=== PATIENT | female | born 1985 | race African-American/Black ===

== ENCOUNTER 2017-05-12 12:50 | Emergency (ER) | payer SELFPAY ==
--- NOTE | 2017-05-12 15:31 | EDPHYS ---
Physician Documentation [facility] Name: Nilo Reid Age: 31 yrs Sex: Female : 1985 Arrival Date: 05/12/2017 Time: 12:52 Bed Treatment Private MD: ED Physician Aadm Miller HPI: 05/12 15:29 This 31 yrs old Black Female presents to ER via Ambulatory with complaints of Abscess, kb Fever. 15:29 The patient presents with lost tooth/teeth, pain, redness, swelling. The problem is kb located in the upper left third molar (#16). Onset: The symptoms/episode began/occurred yesterday. Duration: The symptoms are continuous. Modifying factors: The symptoms are alleviated by nothing, the symptoms are aggravated by nothing. Associated signs and symptoms: Pertinent positives: fever, pain, redness in area, swelling. Severity of symptoms: At their worst the symptoms were moderate, in the emergency department the symptoms are unchanged. The patient has not experienced similar symptoms in the past. The patient has not recently seen a physician. Pt states she has had issues with this particular tooth for a while. Yesterday the tooth fell out, but she didn't notice until she was brushing her teeth last night, then had a lot of pain. States she had a fever this morning and has had continuous pain that is not relieved by OTC medication. . Historical: - Allergies: 13:42 No Known Allergies; ss - Home Meds: 13:42 None [Active]; ss - PMHx: 13:42 None; ss - PSHx: 13:42 c section; ss - Immunization history:: Adult Immunizations up to date. - Social history:: Smoking status: Patient/guardian denies using tobacco. ROS: 15:24 Neck: Negative for injury, pain, and swelling, Cardiovascular: Negative for chest pain, kb palpitations, and edema, Respiratory: Negative for shortness of breath, cough, wheezing, and pleuritic chest pain, Abdomen/GI: Negative for abdominal pain, nausea, vomiting, diarrhea, and constipation, Back: Negative for injury and pain, MS/Extremity: Negative for injury and deformity, Skin: Negative for injury, rash, and discoloration, Neuro: Negative for headache, weakness, numbness, tingling, and seizure. 15:24 Constitutional: Positive for fever, Negative for body aches, chills, fatigue, malaise, poor PO intake, weight loss. 15:24 ENT: Positive for dental pain. Exam: 15:24 Constitutional: This is a well developed, well nourished patient who is awake, alert, kb and in no acute distress. Head/Face: Normocephalic, atraumatic. Chest/axilla: Normal chest wall appearance and motion. Nontender with no deformity. No lesions are appreciated. Cardiovascular: Regular rate and rhythm with a normal S1 and S2. No gallops, murmurs, or rubs. Normal PMI, no JVD. No pulse deficits. Respiratory: Lungs have equal breath sounds bilaterally, clear to auscultation and percussion. No rales, rhonchi or wheezes noted. No increased work of breathing, no retractions or nasal flaring. Abdomen/GI: Soft, non-tender, with normal bowel sounds. No distension or tympany. No guarding or rebound. No evidence of tenderness throughout. Skin: Warm, dry with normal turgor. Normal color with no rashes, no lesions, and no evidence of cellulitis. MS/ Extremity: Pulses equal, no cyanosis. Neurovascular intact. Full, normal range of motion. Neuro: Awake and alert, GCS 15, oriented to person, place, time, and situation. Cranial nerves II-XII grossly intact. Motor strength 5/5 in all extremities. Sensory grossly intact. Cerebellar exam normal. Normal gait. 15:24 ENT: Dental exam: cellulitis, that is mild, specifically in the upper left third molar (#16), gum swelling, that is moderate, specifically in the upper left third molar (#16), pain, that is moderate, specifically in the upper left third molar (#16). Vital Signs: 13:42 BP 128 / 98; Pulse 64; Resp 14; Temp 98.8; Pulse Ox 99% on R/A; Weight 77.11 kg; Height ss 5 ft. 1 in. (154.94 cm); Pain 8/10; 13:42 Body Mass Index 32.12 (77.11 kg, 154.94 cm) ss MDM: 15:17 Patient medically screened. kb 15:24 Data reviewed: vital signs, nurses notes. Data interpreted: Pulse oximetry: on room air kb is 99 %. Interpretation: normal. Counseling: I had a detailed discussion with the patient and/or guardian regarding: the historical points, exam findings, and any diagnostic results supporting the discharge/admit diagnosis, the need for outpatient follow up, a dentist, to return to the emergency department if symptoms worsen or persist or if there are any questions or concerns that arise at home. Administered Medications: No medications were administered Disposition: 05/12/17 15:30 Discharged to Home. Impression: Periapical abscess without sinus. - Condition is Stable. - Discharge Instructions: Abscessed Tooth, [id number]. - Prescriptions for Amoxicillin 875 mg Oral Tablet - take 1 tablet by ORAL route every 12 hours for 10 days; 20 tablet. Tramadol 50 mg Oral Tablet - take 1 tablet by ORAL route every 8 hours as needed; 12 tablet. - Medication Reconciliation Form, Thank You Letter, Antibiotic Education, Prescription Opioid Use form. - Follow up: Private Physician; When: 2 - 3 days; Reason: Recheck today's complaints, Continuance of care, Re-evaluation by your physician. Follow up: Emergency Department; When: As needed; Reason: Worsening of condition. Addendum: 05/16/2017 07:16 Co-signature as Attending Physician, Adam Miller MD. g s Signatures: Olivia Rashid FNP-C FNP-Akiko Biswas RN RN ss Starr, Gregory, MD MD
--- NOTE | 2017-05-12 15:31 | ER ---
Nurse's Notes [facility] Name: Nilo Reid Age: 31 yrs Sex: Female : 1985 Arrival Date: 05/12/2017 Time: 12:52 Bed Treatment Private MD: Diagnosis: Periapical abscess without sinus Presentation: 05/12 13:41 Presenting complaint: Patient states: dental pain that began 2 days ago. "I have an ss abscess". Transition of care: patient was not received from another setting of care. Onset of symptoms was May 10, 2017. Care prior to arrival: None. 13:41 Method Of Arrival: Ambulatory ss 13:41 Acuity: ADRI 5 ss Historical: - Allergies: 13:42 No Known Allergies; ss - Home Meds: 13:42 None [Active]; ss - PMHx: 13:42 None; ss - PSHx: 13:42 c section; ss - Immunization history:: Adult Immunizations up to date. - Social history:: Smoking status: Patient/guardian denies using tobacco. Screenin:29 Abuse screen: Denies threats or abuse. Denies injuries from another. Nutritional ss screening: No deficits noted. Tuberculosis screening: Never had TB. Fall Risk None identified. Assessment: 15:29 General: Appears in no apparent distress. comfortable, Behavior is calm, cooperative, ss Denies fever, feeling ill, fatigue, chills. Pain: Complains of pain in upper left third molar (#16) Pain currently is 8 out of 10 on a pain scale. Quality of pain is described as aching, tender, throbbing, Is continuous. Neuro: Level of Consciousness is awake, alert, obeys commands, Oriented to person, place, time, situation. Cardiovascular: Capillary refill < 3 seconds is brisk in bilateral fingers. Respiratory: Airway is patent Respiratory effort is even, unlabored, Respiratory pattern is regular, symmetrical. EENT: Oral mucosa is moist. Dental caries noted in upper left third molar (#16). Derm: Skin is intact, is healthy with good turgor, Skin is dry, Skin is pink, warm \\T\\ dry. normal. Musculoskeletal: Circulation, motion, and sensation intact. Capillary refill < 3 seconds, is brisk, in bilateral fingers. Range of motion: intact in all extremities, Swelling. Vital Signs: 13:42 BP 128 / 98; Pulse 64; Resp 14; Temp 98.8; Pulse Ox 99% on R/A; Weight 77.11 kg; Height ss 5 ft. 1 in. (154.94 cm); Pain 8/10; 13:42 Body Mass Index 32.12 (77.11 kg, 154.94 cm) ss ED Course: 12:52 Patient arrived in ED. as 13:41 Triage completed. ss 13:42 Arm band placed on left wrist. ss 15:10 Olivia Rashid FNP-C is [facility]. kb 15:10 Adam Miller MD is Attending Physician. kb 15:29 Akiko Jon, RN is Primary Nurse. ss 15:29 Patient has correct armband on for positive identification. Bed in low position. Call ss light in reach. 15:29 No provider procedures requiring assistance completed. Patient did not have IV access ss during this emergency room visit. Administered Medications: No medications were administered Outcome: 15:29 Discharged to home ambulatory. ss 15:29 Condition: good 15:29 Discharge instructions given to patient, Instructed on discharge instructions, follow up and referral plans. medication usage, Demonstrated understanding of instructions, follow-up care, medications, Prescriptions given X 2. 15:30 Discharge ordered by . kb 15:32 Patient left the ED. ss Signatures: Olivia Rashid FNP-C FNP-Joyce Saxena as Akiko Jon, RN RN ss
== END 2017-05-12 15:32 | disposition home or self-care (01) ==
LOC: ER 12:50
DX: K04.7 Periapical abscess without sinus (principal)
CPT/HCPCS: 99282

== ENCOUNTER 2017-06-09 10:19 | Emergency (ER) | payer SELFPAY ==
--- NOTE | 2017-06-09 10:40 | EDPHYS ---
Physician Documentation [facility] Name: Nilo Reid Age: 31 yrs Sex: Female : 1985 Arrival Date: 06/09/2017 Time: 10:20 Bed 11 Private MD: ED Physician Griffin Beasley HPI: 06/09 10:39 This 31 yrs old Black Female presents to ER via Ambulatory with complaints of Ear Pain. pm1 10:39 The patient presents with pain. The complaints affect the right ear. Onset: The pm1 symptoms/episode began/occurred this morning. Modifying factors: The symptoms are alleviated by nothing, the symptoms are aggravated by nothing. Severity of symptoms: in the emergency department the symptoms are worse. The patient has not experienced similar symptoms in the past. The patient has not recently seen a physician. Patient reports right upper molar tooth pain radiating to right ear. 10:39 Associated signs and symptoms: Pertinent negatives: cough, fever, sore throat. 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 - Social history:: Smoking status: Patient/guardian denies using tobacco. ROS: 10:39 Constitutional: Negative for fever, chills, and weight loss, Eyes: Negative for injury, pm1 pain, redness, and discharge. 10:39 Neck: Negative for injury, pain, and swelling, Cardiovascular: Negative for chest pain, palpitations, and edema, Respiratory: Negative for shortness of breath, cough, wheezing, and pleuritic chest pain, Abdomen/GI: Negative for abdominal pain, nausea, vomiting, diarrhea, and constipation, Back: Negative for injury and pain, MS/Extremity: Negative for injury and deformity, Skin: Negative for injury, rash, and discoloration, Neuro: Negative for headache, weakness, numbness, tingling, and seizure. 10:39 ENT: Positive for dental pain, ear pain, Negative for drainage from ear(s). Exam: 10:39 Constitutional: This is a well developed, well nourished patient who is awake, alert, pm1 and in no acute distress. Head/Face: Normocephalic, atraumatic. Eyes: Pupils equal round and reactive to light, extra-ocular motions intact. Lids and lashes normal. Conjunctiva and sclera are non-icteric and not injected. Cornea within normal limits. Periorbital areas with no swelling, redness, or edema. 10:39 Neck: Trachea midline, no thyromegaly or masses palpated, and no cervical lymphadenopathy. Supple, full range of motion without nuchal rigidity, or vertebral point tenderness. No Meningismus. Chest/axilla: Normal chest wall appearance and motion. Nontender with no deformity. No lesions are appreciated. Cardiovascular: Regular rate and rhythm with a normal S1 and S2. No gallops, murmurs, or rubs. Normal PMI, no JVD. No pulse deficits. Respiratory: Lungs have equal breath sounds bilaterally, clear to auscultation and percussion. No rales, rhonchi or wheezes noted. No increased work of breathing, no retractions or nasal flaring. Back: No spinal tenderness. No costovertebral tenderness. Full range of motion. Skin: Warm, dry with normal turgor. Normal color with no rashes, no lesions, and no evidence of cellulitis. MS/ Extremity: Pulses equal, no cyanosis. Neurovascular intact. Full, normal range of motion. 10:39 ENT: External ear(s): are unremarkable, Ear canal(s): are normal, TM's: are normal, Nose: is normal, Mouth: is normal, no acute changes, Dental exam: dental caries, specifically in the upper right third molar (#1) and upper right second molar (#2). Vital Signs: 10:22 BP 149 / 110; Pulse 72; Resp 19; Temp 97.5; Pulse Ox 100% on R/A; Weight 72.57 kg; la1 Height 5 ft. 1 in. (154.94 cm); 10:22 Body Mass Index 30.23 (72.57 kg, 154.94 cm) la1 MDM: 10:25 Patient medically screened. pm1 10:39 Data reviewed: vital signs. Data interpreted: Pulse oximetry: on room air is 100 %. pm1 Interpretation: normal. Counseling: I had a detailed discussion with the patient and/or guardian regarding: the historical points, exam findings, and any diagnostic results supporting the discharge/admit diagnosis, the need for outpatient follow up, for definitive care, a dentist, to return to the emergency department if symptoms worsen or persist or if there are any questions or concerns that arise at home. Administered Medications: No medications were administered Disposition: 06/10 09:17 Co-signature as Attending Physician, Griffin Beasley MD I agree with the assessment and [facility] plan of care. Disposition: 06/09/17 10:40 Discharged to Home. Impression: Dental caries. - Condition is Stable. - Discharge Instructions: Dental Pain. - Prescriptions for Augmentin 875- 125 mg Oral Tablet - take 1 tablet by ORAL route every 12 hours for 10 days; 20 tablet. Tramadol 50 mg Oral Tablet - take 1 tablet by ORAL route every 8 hours as needed; 12 tablet. - Medication Reconciliation Form, Thank You Letter, Antibiotic Education, Prescription Opioid Use form. - Follow up: Emergency Department; When: As needed; Reason: Worsening of condition. Follow up: Private Physician; When: 2 - 3 days; Reason: Recheck today's complaints, Continuance of care, Re-evaluation by your physician. - Problem is new. - Symptoms have improved. Signatures: Griffin Beasley MD MD cha Attema, Lee RN RN la1 Navarro Wilson, LAUREN PRESTO LOG OPERATOR pm1
--- NOTE | 2017-06-09 10:40 | ER ---
Nurse's Notes [facility] Name: Nilo Reid Age: 31 yrs Sex: Female : 1985 Arrival Date: 06/09/2017 Time: 10:20 Bed 11 Private MD: Diagnosis: Dental caries Presentation: 06/09 10:22 Presenting complaint: Patient states: I have been having right ear pain since saturday. la1 Transition of care: patient was not received from another setting of care. Onset of symptoms was June 09, 2017. Initial Sepsis Screen: Does the patient meet any 2 criteria? No. Patient's initial sepsis screen is negative. Does the patient have a suspected source of infection? No. Patient's initial sepsis screen is negative. Care prior to arrival: None. 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 - Social history:: Smoking status: Patient/guardian denies using tobacco. Screenin:26 Abuse screen: Denies threats or abuse. Nutritional screening: No deficits noted. la1 Tuberculosis screening: No symptoms or risk factors identified. Fall Risk None identified. Assessment: 10:26 General: Appears in no apparent distress. Behavior is calm, cooperative. Pain: la1 Complains of pain in right ear. Neuro: Level of Consciousness is awake, alert, obeys commands, Oriented to person, place, time, situation. Cardiovascular: Capillary refill < 3 seconds Patient's skin is warm and dry. Respiratory: Airway is patent Respiratory effort is even, unlabored, Respiratory pattern is regular, symmetrical. GI: No signs and/or symptoms were reported involving the gastrointestinal system. : No signs and/or symptoms were reported regarding the genitourinary system. EENT: Reports pain in right ear. Vital Signs: 10: BP 149 / 110; Pulse 72; Resp 19; Temp 97.5; Pulse Ox 100% on R/A; Weight 72.57 kg; la1 Height 5 ft. 1 in. (154.94 cm); 10: Body Mass Index 30.23 (72.57 kg, 154.94 cm) la1 ED Course: 10:20 Patient arrived in ED. as 10:22 Triage completed. la1 10: Arm band placed on left wrist. la1 10: Navarro Wilson NP is PHCP. pm1 10: Griffin Beasley MD is Attending Physician. pm1 10: Call light in reach. la1 10: No provider procedures requiring assistance completed. Patient did not have IV access la1 during this emergency room visit. Administered Medications: No medications were administered Outcome: 10:40 Discharge ordered by . pm1 10:43 Discharged to home ambulatory. la1 10:43 Condition: stable 10:43 Discharge instructions given to patient, Instructed on discharge instructions, follow up and referral plans. medication usage, Demonstrated understanding of instructions, follow-up care, medications, Prescriptions given X 2. 10:43 Patient left the ED. la1 Signatures: Joyce Teague Lee RN RN la1 Navarro Wilson NP TOLL SETTLEMENT CLERK pm1
== END 2017-06-09 10:43 | disposition home or self-care (01) ==
LOC: ER 10:19
DX: K02.9 Dental caries, unspecified (principal); I10 Essential (primary) hypertension
CPT/HCPCS: 99282

== ENCOUNTER 2017-08-01 10:54 | Emergency (ER) | payer SELFPAY ==
--- NOTE | 2017-08-01 11:20 | ER ---
Nurse's Notes [facility] Name: Nilo Pineda Age: 31 yrs Sex: Female : 1985 Arrival Date: 08/01/2017 Time: 10:58 Bed 14 Private MD: None, None Diagnosis: Periapical abscess without sinus Presentation: 08/01 11:05 Presenting complaint: Patient states: Abscess to upper left mouth that started Saturday. aj Transition of care: patient was not received from another setting of care. Onset of symptoms was July 30, 2017. Risk Assessment: Do you want to hurt yourself or someone else? Patient reports no desire to harm self or others. Care prior to arrival: None. 11:05 Method Of Arrival: Ambulatory aj 11:05 Acuity: ADIR 5 aj 11:10 Initial Sepsis Screen: Does the patient meet any 2 criteria? No. Patient's initial aa5 sepsis screen is negative. Does the patient have a suspected source of infection? No. Patient's initial sepsis screen is negative. Triage Assessment: 11:06 General: Appears in no apparent distress. comfortable, Behavior is calm, cooperative, aj appropriate for age. Pain: Complains of pain in left buccal mucosa. Neuro: Level of Consciousness is awake, alert, obeys commands, Oriented to person, place, time, situation, Appropriate for age. Respiratory: Airway is patent Respiratory effort is even, unlabored, Respiratory pattern is regular, symmetrical. Derm: Skin is intact, is healthy with good turgor, Skin is pink, warm \T\ dry. normal. 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 - Social history:: Smoking status: Patient/guardian denies using tobacco. - Ebola Screening: : Patient negative for fever greater than or equal to 101.5 degrees Fahrenheit, and additional compatible Ebola Virus Disease symptoms Patient denies exposure to infectious person Patient denies travel to an Ebola-affected area in the 21 days before illness onset No symptoms or risks identified at this time. Screenin:10 Abuse screen: Denies threats or abuse. Nutritional screening: No deficits noted. aa5 Tuberculosis screening: No symptoms or risk factors identified. Fall Risk None identified. Assessment: 11:10 General: Appears uncomfortable, Behavior is calm, cooperative. Pain: Complains of pain aa5 in left upper buccal mucosa Pain radiates to left cheek Pain currently is 10 out of 10 on a pain scale. Quality of pain is described as tender, throbbing, Pain began 2-3 days ago. Is continuous. Neuro: Level of Consciousness is awake, alert, obeys commands, Oriented to person, place, time, situation. Cardiovascular: Heart tones S1 S2 present Rhythm is regular. Respiratory: Airway is patent Respiratory effort is even, unlabored, Respiratory pattern is regular, symmetrical. GI: No signs and/or symptoms were reported involving the gastrointestinal system. : No signs and/or symptoms were reported regarding the genitourinary system. EENT: Swollen area noted to back of left upper gum. Derm: Skin is dry, Skin is normal, Skin temperature is warm. Musculoskeletal: Range of motion: intact in all extremities. Vital Signs: 11:06 BP 158 / 112; Pulse 98; Resp 18; Temp 98.5; Pulse Ox 100% on R/A; Weight 66.22 kg; aj Height 5 ft. 1 in. (154.94 cm); 11:25 BP 144 / 85; Pulse 98; Resp 16 S; Pulse Ox 99% on R/A; Pain 10/10; aa5 11:06 Body Mass Index 27.59 (66.22 kg, 154.94 cm) aj ED Course: 10:58 Patient arrived in ED. mr 10:58 None, None is Private Physician. mr 11:06 Triage completed. aj 11:06 Arm band placed on left wrist. Patient placed in an exam room. aj 11:08 Anna Siddiqi FNP-C is PHCP. snw 11:08 Angelo Wisdom MD is Attending Physician. snw 11:10 Patient has correct armband on for positive identification. aa5 11:14 Karin Samuel, RN is Primary Nurse. aa5 11:30 No provider procedures requiring assistance completed. Patient did not have IV access aa5 during this emergency room visit. Administered Medications: 11:30 Drug: Clindamycin 300 mg Route: PO; aa5 11:30 Follow up: Response: Medication administered at discharge. aa5 11:30 Follow up: Response: No adverse reaction aa5 11:30 Drug: traMADol 50 mg Route: PO; aa5 11:30 Follow up: Response: Medication administered at discharge. aa5 11:30 Follow up: Response: No adverse reaction aa5 Outcome: 11:19 Discharge ordered by . isidro 11:30 Discharged to home ambulatory, with family. aa5 11:30 Condition: stable 11:30 Discharge instructions given to patient, Instructed on discharge instructions, follow up and referral plans. medication usage, Demonstrated understanding of instructions, follow-up care, medications, Prescriptions given X 3. 11:31 Patient left the ED. aa5 Signatures: Sabina Saul RN RN aj Therrien, Shelly, APPLICATION DEVELOPMENT LIAISON-C APPLICATION DEVELOPMENT LIAISON-Mercy Rodriguez Audri, RN RN aa5 Corrections: (The following items were deleted from the chart) 11:36 11:25 BP 144 / 85; Pulse 98bpm; Resp 16bpm; Spontaneous; Pulse Ox 99% RA; Pain /10; [id number]
--- NOTE | 2017-08-01 11:20 | EDPHYS ---
Physician Documentation [facility] Name: Nilo Pineda Age: 31 yrs Sex: Female : 1985 Arrival Date: 08/01/2017 Time: 10:58 Bed 14 Private MD: None, None ED Physician Angelo Wisdom HPI: 08/01 11:50 This 31 yrs old Black Female presents to ER via Ambulatory with complaints of Abscess. snw 11:50 the patient presents with a swollen area of the upper left third molar (#16). snw Description: swollen. Onset: The symptoms/episode began/occurred gradually, at an unknown time. Possible cause(s): toothache. Associated signs and symptoms: Pertinent positives: swelling. Severity of symptoms: At their worst the symptoms were moderate, severe. The patient has not experienced similar symptoms in the past. The patient has not recently seen a physician, has an appt with dentist in two weeks. Pain not manageable for that long. 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 - Social history:: Smoking status: Patient/guardian denies using tobacco. - Ebola Screening: : Patient negative for fever greater than or equal to 101.5 degrees Fahrenheit, and additional compatible Ebola Virus Disease symptoms Patient denies exposure to infectious person Patient denies travel to an Ebola-affected area in the 21 days before illness onset No symptoms or risks identified at this time. ROS: 11:50 Constitutional: Negative for fever, chills, and weight loss, Eyes: Negative for injury, snw pain, redness, and discharge, Neck: Negative for injury, pain, and swelling, Cardiovascular: Negative for chest pain, palpitations, and edema, Respiratory: Negative for shortness of breath, cough, wheezing, and pleuritic chest pain, Abdomen/GI: Negative for abdominal pain, nausea, vomiting, diarrhea, and constipation, Back: Negative for injury and pain, : Negative for injury, bleeding, discharge, and swelling, MS/Extremity: Negative for injury and deformity, Skin: Negative for injury, rash, and discoloration, Neuro: Negative for headache, weakness, numbness, tingling, and seizure. 11:50 ENT: Positive for dental pain. Exam: 11:48 Constitutional: This is a well developed, well nourished patient who is awake, alert, snw and in no acute distress. Head/Face: Normocephalic, atraumatic. Eyes: Pupils equal round and reactive to light, extra-ocular motions intact. Lids and lashes normal. Conjunctiva and sclera are non-icteric and not injected. Cornea within normal limits. Periorbital areas with no swelling, redness, or edema. Neck: Trachea midline, no thyromegaly or masses palpated, and no cervical lymphadenopathy. Supple, full range of motion without nuchal rigidity, or vertebral point tenderness. No Meningismus. Chest/axilla: Normal chest wall appearance and motion. Nontender with no deformity. No lesions are appreciated. Cardiovascular: Regular rate and rhythm with a normal S1 and S2. No gallops, murmurs, or rubs. Normal PMI, no JVD. No pulse deficits. Respiratory: Lungs have equal breath sounds bilaterally, clear to auscultation and percussion. No rales, rhonchi or wheezes noted. No increased work of breathing, no retractions or nasal flaring. Abdomen/GI: Soft, non-tender, with normal bowel sounds. No distension or tympany. No guarding or rebound. No evidence of tenderness throughout. Back: No spinal tenderness. No costovertebral tenderness. Full range of motion. Skin: Warm, dry with normal turgor. Normal color with no rashes, no lesions, and no evidence of cellulitis. MS/ Extremity: Pulses equal, no cyanosis. Neurovascular intact. Full, normal range of motion. Neuro: Awake and alert, GCS 15, oriented to person, place, time, and situation. Cranial nerves II-XII grossly intact. Motor strength 5/5 in all extremities. Sensory grossly intact. Cerebellar exam normal. Normal gait. Psych: Awake, alert, with orientation to person, place and time. Behavior, mood, and affect are within normal limits. 11:48 ENT: External ear(s): are unremarkable, Ear canal(s): are normal, TM's: are normal, Nose: is normal, Mouth: is normal, Posterior pharynx: is normal, Dental exam: dental caries, that is moderate, gum swelling, that is mild, specifically in the upper left third molar (#16), pain, that is moderate, specifically in the upper left third molar (#16). Vital Signs: 11:06 BP 158 / 112; Pulse 98; Resp 18; Temp 98.5; Pulse Ox 100% on R/A; Weight 66.22 kg; aj Height 5 ft. 1 in. (154.94 cm); 11:25 BP 144 / 85; Pulse 98; Resp 16 S; Pulse Ox 99% on R/A; Pain 10/10; aa5 11:06 Body Mass Index 27.59 (66.22 kg, 154.94 cm) aj MDM: 11:11 Patient medically screened. snw 11:49 Data reviewed: vital signs, nurses notes. Data interpreted: Pulse oximetry: on room air snw is 99 %. Interpretation: normal. Counseling: I had a detailed discussion with the patient and/or guardian regarding: the historical points, exam findings, and any diagnostic results supporting the discharge/admit diagnosis, the presence of at least one elevated blood pressure reading (>120/80) during this emergency department visit, the need for outpatient follow up, to return to the emergency department if symptoms worsen or persist or if there are any questions or concerns that arise at home. Special discussion: I have referred the patient to see his PCP for further evaluation of high blood pressure. Based on the history and exam findings, there is no indication for further emergent testing or inpatient evaluation. I discussed with the patient/guardian the need to see a dentist for further evaluation of the symptoms. Special discussion: Based on the history and exam findings, there is no indication for further emergent testing or inpatient evaluation. I discussed with the patient/guardian the need to see the primary care provider for further evaluation of the symptoms. Administered Medications: 11:30 Drug: Clindamycin 300 mg Route: PO; aa5 11:30 Follow up: Response: Medication administered at discharge. aa5 11:30 Follow up: Response: No adverse reaction aa5 11:30 Drug: traMADol 50 mg Route: PO; aa5 11:30 Follow up: Response: Medication administered at discharge. aa5 11:30 Follow up: Response: No adverse reaction aa5 Disposition: 16:58 Co-signature as Attending Physician, Angelo Wisdom MD. rn Disposition: 08/01/17 11:19 Discharged to Home. Impression: Periapical abscess without sinus. - Condition is Stable. - Discharge Instructions: Dental Abscess, Dental Pain, Diet and Dental Disease. - Prescriptions for chlorhexidine gluconate 0.12 % Mucous Membrane mouthwash - place 15 milliliter by MUCOUS MEMBRANE route 2 times per day after brushing teeth, swish in mouth for 30 seconds then spit out; 480 milliliter. Clindamycin HCl 150 mg Oral Capsule - take 2 capsule by ORAL route every 8 hours for 10 days; 60 capsule. Tramadol 50 mg Oral Tablet - take 1 tablet by ORAL route every 8 hours as needed; 15 tablet. - Medication Reconciliation Form, Thank You Letter, Antibiotic Education, Prescription Opioid Use form. - Follow up: Private Physician; When: 2 - 3 days; Reason: Recheck today's complaints, Continuance of care, Re-evaluation by your physician. Follow up: Emergency Department; When: As needed; Reason: Worsening of condition. - Notes: Dental wax Signatures: Sabina Saul RN RN Anna Scott, WEB APPLICATIONS ADMINISTRATOR-C WEB APPLICATIONS ADMINISTRATOR-Csnw Angelo Wisdom MD MD rn Calderon, Audri RN RN aa5 Corrections: (The following items were deleted from the chart) 11:31 11:19 08/01/2017 11:19 Discharged to Home. Impression: Periapical abscess without aa5 sinus. Condition is Stable. Forms are Medication Reconciliation Form, Thank You Letter, Antibiotic Education, Prescription Opioid Use. Follow up: Private Physician; When: 2 - 3 days; Reason: Recheck today's complaints, Continuance of care, Re-evaluation by your physician. Follow up: Emergency Department; When: As needed; Reason: Worsening of condition. snw
[2017-08-01] MEDS ORDERED: CLINDAMYCIN HCL 150 MG CAP ONE (11:27)
[2017-08-01] MEDS ORDERED: TRAMADOL HCL 50 MG TAB ONE (11:27)
== END 2017-08-01 11:31 | disposition home or self-care (01) ==
LOC: ER 10:54
DX: K04.7 Periapical abscess without sinus (principal); I10 Essential (primary) hypertension
CPT/HCPCS: 99283

== ENCOUNTER 2019-07-28 09:50 | Emergency (ER) | payer OTHER, SELFPAY ==
[2019-07-28] MEDS ORDERED: NA CHLORIDE 0.9% 500 ML ONE (10:40)
[2019-07-28] MEDS ORDERED: ONDANSETRON 4 MG/2 ML VIAL ONE (10:40)
[2019-07-28 10:58] LABS: Absolute Lymphocytes (CBC) 1.9 K/uL (0.7-4.9); Basophils % 0.6 % (0-1.3); Hematocrit 39.6 % (36.0-45.0); Lymphocytes % 26.1 % (15.3-44.8); MPV 8.3 fL (7.6-11.3); RBC Red Blood Cell Count 3.97 M/uL (3.86-4.86)
[2019-07-28] MEDS ORDERED: MORPHINE 4 MG/ML SYR ONE (11:09)
[2019-07-28 11:11] LABS: BUN Blood Urea Nitrogen 8 mg/dL (7-18); Bicarbonate 26 mmol/L (21-32); Glucose Level 97 mg/dL (74-106); Potassium 3.6 mmol/L (3.5-5.1); Sodium Level 140 mmol/L (136-145)
[2019-07-28] MEDS ORDERED: KETOROLAC 30 MG/ML INJ ONE (12:06)
[2019-07-28 12:09] LABS: Urine Blood NEGATIVE (NEG); Urine Glucose NEGATIVE (NEG); Urine Protein NEGATIVE (NEG); Urine Specific Gravity 1.025 (1.005-1.030)
--- NOTE | 2019-07-28 12:36 | RAD REPORT ---
EXAM DESCRIPTION: CT - Abdomen Pelvis W Contrast - 07/28/2019 12:25 pm CLINICAL HISTORY: Abdominal pain COMPARISON: none. TECHNIQUE: Computed axial tomography of the abdomen pelvis was obtained. 100 cc Isovue-300 was admin istered intravenously. Oral contrast was not requested which limits evaluation of bowel. All CT scans are performed using dose optimization technique as appropriate and may include automated exposure control or mA/KV adjustment according to patient size. FINDINGS: The liver, spleen, pancreas, adrenal and kidneys appear unremarkable. There is no evidence of diverticulitis. The wall of portions of the transverse, descending and sigmoi d colon appear mildly thickened Endometrial stripe is prominent. IMPRESSION: Endometrial stripe is prominent. Further evaluation with pelvic ultrasound is recommende d Portions of the wall appears mildly thickened. This could indicate a mild colitis or be secondary to incomplete distention
[2019-07-28] MEDS ORDERED: FENTANYL CITR 100 MCG/2 ML ONE (13:13)
--- NOTE | 2019-07-28 14:21 | ER ---
Nurse's Notes [facility] Name: Nilo Pineda Age: 33 yrs Sex: Female : 1985 Arrival Date: 07/28/2019 Time: 09:54 Bed 8 Private MD: Diagnosis: Abdominal and pelvic pain;Abnormal uterine and vaginal bleeding, unspecified Presentation: 07/27 09:58 Chief complaint: Patient states: last night the cramping just got very unmanageable, i tw2 stay bleeding, it starts off real heavy but right now the bleeding is light, i have to wear a panty liner, my ob said i have ovarian cyst and i need a partial hysterectomy but i just havent had a chance to make an appt and i dont know who to go to. Coronavirus screen: Patient denies a cough. Patient denies shortness of breath or difficulty breathing. Patient denies measured and/or subjective temperature greater than 100.4F prior to today's visit. Patient denies travel on a cruise ship or to a country the [facility] currently lists as an affected area. Patient denies contact with known and/or suspected case of COVID-19. Ebola Screen: Patient denies travel to an Ebola-affected area in the 21 days before illness onset. Initial Sepsis Screen: Does the patient meet any 2 criteria? No. Patient's initial sepsis screen is negative. Does the patient have a suspected source of infection? No. Patient's initial sepsis screen is negative. Risk Assessment: Do you want to hurt yourself or someone else? Patient reports no desire to harm self or others. Onset of symptoms was July 28, 2019. 09:58 Method Of Arrival: Ambulatory tw2 09:58 Acuity: ADRI 3 tw2 Triage Assessment: 10:00 General: Appears uncomfortable, Behavior is calm, cooperative, appropriate for age. tw2 Pain: Complains of pain in pelvis. GI: Reports cramping, nausea. [employer]: 10:01 LMP 07/28/2019 tw2 Historical: - Allergies: 10:02 No Known Allergies; tw2 - Home Meds: 10:02 None [Active]; tw2 - PMHx: 10:02 Hypertension; tw2 - PSHx: 10:02 None; tw2 - Immunization history:: Adult Immunizations. - Social history:: Smoking status: . Screenin:46 Abuse screen: Denies threats or abuse. Denies injuries from another. Nutritional jl7 screening: No deficits noted. Tuberculosis screening: No symptoms or risk factors identified. Fall Risk IV access (20 points). Total Dougherty Fall Scale indicates No Risk (0-24 pts). Assessment: 10:46 General: Appears in no apparent distress. uncomfortable, Behavior is calm, cooperative, jl7 appropriate for age. Pain: Complains of pain in right lower quadrant and left lower quadrant Pain currently is 9 out of 10 on a pain scale. Quality of pain is described as crampy. Neuro: Level of Consciousness is awake, alert, obeys commands, Oriented to person, place, time, situation. Cardiovascular: Patient's skin is warm and dry. Respiratory: Airway is patent Respiratory effort is even, unlabored, Respiratory pattern is regular, symmetrical. GI:. : Reports vaginal bleeding that is light flow. Derm: Skin is pink, warm \\T\\ dry. 11:20 Reassessment: Pt reports decreased pain rated 7/10 at this time. jl7 12:00 Reassessment: Pt reports increased pain, rated 8/10, ERD notified, see MAR for orders. jl7 12:35 Reassessment: Pt states "Y'all can't give me anything else for pain? I think I just jl7 need to get a hysterectomy." Reports no change in pain, ERD notified, VO for 25 mcg Fentanyl IVP. 13:30 Reassessment: Patient appears in no apparent distress at this time. Patient and/or jl7 family updated on plan of care and expected duration. Pain level reassessed. Patient is alert, oriented x 3, equal unlabored respirations, skin warm/dry/pink. Patient states feeling better. Patient states symptoms have improved. Vital Signs: 09:58 BP 144 / 99; Pulse 79; Resp 17; Temp 98.6(O); Pulse Ox 99% on NC; Weight 58.51 kg (R); tw2 Height 5 ft. 1 in. (154.94 cm); Pain 10/10; 11:00 BP 146 / 94; Pulse 72; Resp 16; Pulse Ox 100% ; Pain 9/10; jl7 12:00 BP 145 / 105; Pulse 59; Resp 16; Pulse Ox 100% ; jl7 13:08 BP 142 / 114; Pulse 63; Resp 17; Pulse Ox 100% ; jl7 14:20 BP 143 / 102; Pulse 58; Resp 16; Pulse Ox 100% ; jl7 09:58 Body Mass Index 24.37 (58.51 kg, 154.94 cm) tw2 ED Course: 09:54 Patient arrived in ED. fj1 10:00 Triage completed. tw2 10:00 Arm band placed on. tw2 10:03 Dee Lin RN is Primary Nurse. jl7 10:03 Nikolay Kaplan MD is Attending Physician. kdr 10:46 Patient has correct armband on for positive identification. Bed in low position. Call 7 light in reach. Side rails up X 1. 10:46 Initial lab(s) drawn, by me, sent to lab. Inserted saline lock: 20 gauge in right jl7 antecubital area, using aseptic technique. Blood collected. 12:19 CT Abd/Pelvis - IV Contrast Only In Process Unspecified. EDMS 14:43 No provider procedures requiring assistance completed. IV discontinued, intact, jl7 bleeding controlled, No redness/swelling at site. Pressure dressing applied. Administered Medications: 10:45 Drug: Zofran (Ondansetron) 4 mg Route: IVP; Site: right antecubital; jl7 11:08 Follow up: Response: No adverse reaction; Nausea is decreased jl7 10:45 Drug: NS 0.9% 500 ml Route: IV; Rate: bolus; Site: right antecubital; jl7 11:15 Follow up: Response: No adverse reaction; IV Status: Completed infusion; IV Intake: jl7 1000ml 11:02 Drug: morphine 4 mg Route: IVP; Site: right antecubital; jl7 11:20 Follow up: Response: No adverse reaction; Pain is decreased jl7 12:05 Drug: TORadol 30 mg Route: IVP; Site: right antecubital; jl7 12:28 Follow up: Response: No adverse reaction; Pain is unchanged, physician notified jl7 13:08 Drug: fentaNYL (PF) 25 mcg Route: IVP; Site: right antecubital; jl7 13:30 Follow up: Response: No adverse reaction; Pain is decreased jl7 Intake: 11:15 IV: 1000ml; Total: 1000ml. jl7 Outcome: 14:20 Discharge ordered by . kdr 14:43 Discharged to home ambulatory. jl7 14:43 Condition: stable 14:43 Discharge instructions given to patient, Instructed on discharge instructions, follow up and referral plans. medication usage, Demonstrated understanding of instructions, follow-up care, medications, Prescriptions given X 1. 14:44 Patient left the ED. jl7 Signatures: Dispatcher [employer] EDMS Nikolay Kaplan MD MD kdr Wise, Tara RN RN tw2 Dee Lin RN RN jl7 Alexander Hammer fj1
--- NOTE | 2019-07-28 14:22 | EDPHYS ---
Physician Documentation [facility] Name: Nilo Pineda Age: 33 yrs Sex: Female : 1985 Arrival Date: 07/28/2019 Time: 09:54 Bed 8 Private MD: ED Physician Nikolay Kaplan HPI: 07/27 10:29 This 33 yrs old Black Female presents to ER via Ambulatory with complaints of Abdominal kdr Cramping. 10:29 The patient presents with abdominal pain in the lower abdomen. Onset: The kdr symptoms/episode began/occurred 2 day(s) ago. The symptoms do not radiate. Associated signs and symptoms: Pertinent positives: nausea, vaginal bleeding. The symptoms are described as achy, crampy, intermittent, waxing/waning. Modifying factors: The symptoms are alleviated by nothing, the symptoms are aggravated by movement, touching the area. Severity of pain: At its worst the pain was mild this morning. The patient has experienced similar episodes in the past, a few times. The patient has not recently seen a physician. The patient reports that she had been told that she had multiple ovarian cysts and that she may need a hysterectomy. She has a strong family history of hysterectomies and has been putting off getting further evaluated. She has now been bleeding since July 14. She has been using 3 - 7 pads per day. 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 - Social history:: Smoking status: . ROS: 10:29 Constitutional: Negative for fever, chills, and weight loss, Eyes: Negative for injury, kdr pain, redness, and discharge, Neck: Negative for injury, pain, and swelling, Cardiovascular: Negative for chest pain, palpitations, and edema, Respiratory: Negative for shortness of breath, cough, wheezing, and pleuritic chest pain, Back: Negative for injury and pain, MS/Extremity: Negative for injury and deformity, Skin: Negative for injury, rash, and discoloration, Neuro: Negative for headache, weakness, numbness, tingling, and seizure activity. Psych: Negative for depression, anxiety, suicide ideation, homicidal ideation, and hallucinations, Allergy/Immunology: Negative for hives, rash, and allergies, Endocrine: Negative for neck swelling, polydipsia, polyuria, polyphagia, and marked weight changes, Hematologic/Lymphatic: Negative for swollen nodes, abnormal bleeding, and unusual bruising. 10:29 Abdomen/GI: Positive for abdominal pain, nausea, Negative for diarrhea, constipation, abdominal cramps, black/tarry stool, rectal pain, rectal bleeding. 10:29 : Positive for vaginal bleeding. Exam: 10:29 Constitutional: This is a well developed, well nourished patient who is awake, alert, kdr and in no acute distress. Head/Face: Normocephalic, atraumatic. Eyes: Pupils equal round and reactive to light, extra-ocular motions intact. Lids and lashes normal. Conjunctiva and sclera are non-icteric and not injected. Cornea within normal limits. Periorbital areas with no swelling, redness, or edema. Neck: Trachea midline, no thyromegaly or masses palpated, and no cervical lymphadenopathy. Supple, full range of motion without nuchal rigidity, or vertebral point tenderness. No Meningismus. Chest/axilla: Normal chest wall appearance and motion. Nontender with no deformity. No lesions are appreciated. Cardiovascular: Regular rate and rhythm with a normal S1 and S2. No gallops, murmurs, or rubs. Normal PMI, no JVD. No pulse deficits. Respiratory: Lungs have equal breath sounds bilaterally, clear to auscultation and percussion. No rales, rhonchi or wheezes noted. No increased work of breathing, no retractions or nasal flaring. Back: No spinal tenderness. No costovertebral tenderness. Full range of motion. Skin: Warm, dry with normal turgor. Normal color with no rashes, no lesions, and no evidence of cellulitis. MS/ Extremity: Pulses equal, no cyanosis. Neurovascular intact. Full, normal range of motion. Neuro: Awake and alert, GCS 15, oriented to person, place, time, and situation. Cranial nerves II-XII grossly intact. Motor strength 5/5 in all extremities. Sensory grossly intact. Cerebellar exam normal. Normal gait. Psych: Awake, alert, with orientation to person, place and time. Behavior, mood, and affect are within normal limits. 10:29 Abdomen/GI: Inspection: abdomen appears normal, Bowel sounds: active, all quadrants, Palpation: soft, mild abdominal tenderness, in the suprapubic area, mass, is not appreciated, rebound tenderness, is not appreciated. Vital Signs: 09:58 BP 144 / 99; Pulse 79; Resp 17; Temp 98.6(O); Pulse Ox 99% on NC; Weight 58.51 kg (R); tw2 Height 5 ft. 1 in. (154.94 cm); Pain 10/10; 11:00 BP 146 / 94; Pulse 72; Resp 16; Pulse Ox 100% ; Pain 9/10; jl7 12:00 BP 145 / 105; Pulse 59; Resp 16; Pulse Ox 100% ; jl7 13:08 BP 142 / 114; Pulse 63; Resp 17; Pulse Ox 100% ; jl7 14:20 BP 143 / 102; Pulse 58; Resp 16; Pulse Ox 100% ; jl7 09:58 Body Mass Index 24.37 (58.51 kg, 154.94 cm) tw2 MDM: 10:29 Data reviewed: vital signs, nurses notes, lab test result(s), radiologic studies. kdr Counseling: I had a detailed discussion with the patient and/or guardian regarding: the historical points, exam findings, and any diagnostic results supporting the discharge/admit diagnosis, lab results, radiology results. 14:20 Patient medically screened. [facility] 07/27 10:13 Order name: Urine Dipstick--Ancillary (enter results); Complete Time: 12:19 bd 07/27 10:13 Order name: Urine --Ancillary (enter results); Complete Time: 12:19 bd 07/27 10:29 Order name: Abo/rh Typing; Complete Time: 12:19 kdr 07/27 10:29 Order name: Basic Metabolic Panel; Complete Time: 12:19 kdr 07/27 10:29 Order name: CBC with Diff; Complete Time: 11:01 kdr 07/27 14:01 Order name: ABO/RH no charge; Complete Time: 14:19 EDMS 07/27 10:29 Order name: IV Saline Lock; Complete Time: 10:45 kdr 07/27 11:56 Order name: CT Abd/Pelvis - IV Contrast Only; Complete Time: 12:53 kdr 07/27 10:29 Order name: Labs collected and sent; Complete Time: 10:45 [facility] 07/27 10:29 Order name: NPO; Complete Time: 10:45 [facility] 07/27 10:29 Order name: Urine Dipstick-Ancillary (obtain specimen); Complete Time: 10:45 [facility] 07/27 11:50 Order name: Labs - recollect needed: collect abo/rh no charge; Complete Time: 12:23 bd Administered Medications: 10:45 Drug: Zofran (Ondansetron) 4 mg Route: IVP; Site: right antecubital; jl7 11:08 Follow up: Response: No adverse reaction; Nausea is decreased jl7 10:45 Drug: NS 0.9% 500 ml Route: IV; Rate: bolus; Site: right antecubital; jl7 11:15 Follow up: Response: No adverse reaction; IV Status: Completed infusion; IV Intake: jl7 1000ml 11:02 Drug: morphine 4 mg Route: IVP; Site: right antecubital; jl7 11:20 Follow up: Response: No adverse reaction; Pain is decreased jl7 12:05 Drug: TORadol 30 mg Route: IVP; Site: right antecubital; jl7 12:28 Follow up: Response: No adverse reaction; Pain is unchanged, physician notified jl7 13:08 Drug: fentaNYL (PF) 25 mcg Route: IVP; Site: right antecubital; jl7 13:30 Follow up: Response: No adverse reaction; Pain is decreased jl7 Disposition: 07/28/19 14:20 Discharged to Home. Impression: Abdominal and pelvic pain, Abnormal uterine and vaginal bleeding, unspecified. - Condition is Stable. - Discharge Instructions: Abdominal Pain, Adult, [id number]. - Prescriptions for Tylenol 325 mg Oral Tablet - take 2 tablet by ORAL route every 6 hours as needed; 1 bottle. - Medication Reconciliation Form, Thank You Letter, Antibiotic Education, Prescription Opioid Use form. - Follow up: Private Physician; When: 2 - 3 days; Reason: If symptoms return, Further diagnostic work-up, Recheck today's complaints, Continuance of care, Re-evaluation by your physician. - Problem is new. - Symptoms have improved. Signatures: Dispatcher [employer] EDMS Zoraida Henriquez Kevin, MD MD kdr Apurva Lacy RN RN tw2 Dee Lin, CORINNE RN jl7 Corrections: (The following items were deleted from the chart) 13:46 12:56 Transvaginal Study (Probe)+[id number].RAD.BRZ ordered. EDAL EDMS 14:44 14:20 07/28/2019 14:20 Discharged to Home. Impression: Abdominal and pelvic pain; jl7 Abnormal uterine and vaginal bleeding, unspecified. Condition is Stable. Forms are Medication Reconciliation Form, Thank You Letter, Antibiotic Education, Prescription Opioid Use. Follow up: Private Physician; When: 2 - 3 days; Reason: If symptoms return, Further diagnostic work-up, Recheck today's complaints, Continuance of care, Re-evaluation by your physician. Problem is new. Symptoms have improved. kdr
--- OUTSIDE RECORDS SUMMARY | 2019-07-28 14:54 | XMS REPORT | Continuity of Care Document ---
:1985 Author Organization [facility] t Address [address] [place] [address] [address]. D[address] [place] [address] Care Team Providers Name Role Phone Enrique Maldonado DO Attending Clinician Doctor Unassigned, Name Attending Clinician Unavailable Problems This patient has no known problems. Allergies, Adverse Reactions, Alerts This patient has no known allergies or adverse reactions. Medications This patient has no known medications. Procedures This patient has no known procedures. Encounters Start End Encounter Admission Attending Care Care Encounter Source Date/Time Date/Time Type Type Clinicians Facility Department ID 2019-03-03 2019-03-03 Emergency [facility] [id number] 07:12:25 09:13:00 Mitzy Jarquin [id number] [place] [id number] [place] [id number] 2019-03-03 2019-03-03 Orders Doctor CARBAJAL [id number] 00:00:00 00:00:00 Only UnassALEXEI rosales [id number] [place] [facility] [id number] Results This patient has no known results.
[2019-07-28 15:04] VITALS: TEMP 98.6
[2019-07-28 15:05] VITALS: O2SAT 100
[2019-07-28 15:10] VITALS: BP 143/102
== END 2019-07-28 14:44 | disposition home or self-care (01) ==
LOC: ER 09:50
DX: N93.9 Abnormal uterine and vaginal bleeding, unspecified (principal); I10 Essential (primary) hypertension
CPT/HCPCS: 85025; 80048; 36415; 86900; 81025; 86901; 81003; 74177; 96375; 96374; 99284; Q9967; J3010; J7040; J2405

== ENCOUNTER 2020-09-26 08:39 | Emergency (ER) | payer OTHER ==
--- OUTSIDE RECORDS SUMMARY | 2020-09-26 08:42 | XMS REPORT | Continuity of Care Document ---
:1985 Author Organization [facility] t Address [address] [place] [address] Dr. Daley. [address] [place] [address] Care Team Providers Name Role Phone Milena Oneill Attending Clinician Doctor Unassigned, Name Attending Clinician Unavailable Singer MCGEE Attending Clinician Milena Valentin MD Attending Clinician Ernique Maldonado DO Attending Clinician Problems This patient has no known problems. Allergies, Adverse Reactions, Alerts This patient has no known allergies or adverse reactions. Medications This patient has no known medications. Procedures This patient has no known procedures. Encounters Start End Encounter Admission Attending Care Care Encounter Source Date/Time Date/Time Type Type Clinicians Facility Department ID 2020-07-18 2020-07-18 Emergency MARGOTH Turner [id number] 13:52:00 17:35:00 Jeimy Jarquin [id number] [place] [id number] [place] [id number] 2020-07-18 2020-07-18 Orders Doctor CARBAJAL [id number] 00:00:00 00:00:00 Only Unassigned, ALEXEI [id number] [place] [facility] [id number] 2019-11-25 2019-11-25 [facility] [id number] 11:35:00 13:48:00 Elías Milka [id number] [place] [id number] [place] [id number] 2019-11-24 2019-11-24 [facility] [id number] 18:17:00 18:42:00 Armond Milena Milka [id number] [place] [id number] [place] [id number] 2019-03-03 2019-03-03 [facility] [id number] 07:12:25 09:13:00 Mitzy Jarquin [id number] [place] [id number] [place] [id number] 2019-03-03 2019-03-03 Orders Doctor [facility] [id number] 00:00:00 00:00:00 Only Unassigned, ALEXEI [id number] [place] [facility] [id number] Results This patient has no known results.
--- NOTE | 2020-09-26 10:38 | RAD REPORT ---
EXAM DESCRIPTION: Lola Single View09/26/2020 10:00 am CLINICAL HISTORY: Cough COMPARISON: none FINDINGS: The lungs appear clear of acute infiltrate. The heart is normal size IMPRESSION: No acute abnormalities displayed
--- NOTE | 2020-09-26 10:51 | ER ---
Nurse's Notes [facility] Name: Nilo Pineda Age: 34 yrs Sex: Female : 1985 Arrival Date: 09/26/2020 Time: 08:42 Bed Waiting Private MD: Diagnosis: Fever, unspecified Presentation: 09/26 08:59 Chief complaint: Patient states: body aches, fever, diarrhea, cough and chest pains iw with cough , +exposure to COVID. Coronavirus screen: Client presents with at least one sign or symptom that may indicate coronavirus-19. Ebola Screen: Patient negative for fever greater than or equal to 101.5 degrees Fahrenheit, and additional compatible Ebola Virus Disease symptoms Patient denies exposure to infectious person. Patient denies travel to an Ebola-affected area in the 21 days before illness onset. No symptoms or risks identified at this time. Initial Sepsis Screen: Does the patient meet any 2 criteria? No. Patient's initial sepsis screen is negative. Does the patient have a suspected source of infection? No. Patient's initial sepsis screen is negative. Risk Assessment: Do you want to hurt yourself or someone else? Patient reports no desire to harm self or others. Onset of symptoms was September 24, 2020. 08:59 Method Of Arrival: Ambulatory iw 08:59 Acuity: ADRI 4 iw Historical: - Allergies: 09:01 No Known Allergies; iw - PMHx: 09:01 Hypertension; iw - Immunization history:: Client reports having NOT received the Covid vaccine. - Social history:: Smoking status: Patient denies any tobacco usage or history of. - Family history:: not pertinent. - Hospitalizations: : No recent hospitalization is reported. Vital Signs: 08:59 BP 135 / 99; Pulse 92; Resp 18; Temp 98.7; Pulse Ox 100% on R/A; iw ED Course: 08:42 Patient arrived in ED. mr 08:43 Angelo Wisdom MD is Attending Physician. rn 08:58 Lety Maldonado, CORINNE is Primary Nurse. iw 09:01 Triage completed. iw 09:01 Arm band placed on. iw 09:56 XRAY Chest (1 view) In Process Unspecified. EDMS Administered Medications: No medications were administered Outcome: 10:51 Discharge ordered by . rn 11:17 Patient left the ED. iw Signatures: Dispatcher [employer] Luana Murray Irene, CORINNE RN Angelo Augustine MD MD rn
--- NOTE | 2020-09-26 10:52 | EDPHYS ---
Physician Documentation [facility] Name: Nilo Pineda Age: 34 yrs Sex: Female : 1985 Arrival Date: 09/26/2020 Time: 08:42 Bed Waiting Private MD: ED Physician Angelo Wisdom HPI: 09/26 09:07 This 34 yrs old Black Female presents to ER via Ambulatory with complaints of Fever. rn 09:07 The patient reports fever, not measured (subjective). Onset: The symptoms/episode rn began/occurred 2 day(s) ago. Modifying factors: The patient has had contact with sick. Associated signs and symptoms: Pertinent positives: chills, cough, runny nose, sore throat. Severity of symptoms: At their worst the symptoms were mild in the emergency department the symptoms are unchanged. The patient has not experienced similar symptoms in the past. The patient has not recently seen a physician. Patient reports 2 days of subjective fever, chills, myalgias, fatigue, nasal congestion, and cough. Denies shortness of breath. Family member at home positive for Covid last week. Patient here for Covid testing.. Historical: - Allergies: 09:01 No Known Allergies; iw - PMHx: 09:01 Hypertension; iw - Immunization history:: Client reports having NOT received the Covid vaccine. - Social history:: Smoking status: Patient denies any tobacco usage or history of. - Family history:: not pertinent. - Hospitalizations: : No recent hospitalization is reported. ROS: 09:07 Constitutional: Positive for fever and chills Eyes: Negative for injury, pain, redness, rn and discharge, ENT: Positive for runny nose and congestion Neck: Negative for injury, pain, and swelling, Cardiovascular: Negative for chest pain, palpitations, and edema, Respiratory: Positive for cough, negative for shortness of breath Abdomen/GI: Negative for abdominal pain or vomiting, positive for diarrhea Back: Negative for injury and pain, : Negative for injury, bleeding, discharge, and swelling, MS/Extremity: Negative for injury and deformity, Skin: Negative for injury, rash, and discoloration, Neuro: Negative for headache, numbness, tingling, and seizure. 09:07 All other systems are negative. rn Exam: 09:07 Constitutional: This is a well developed, well nourished patient who is awake, alert, rn and in no acute distress. Head/Face: Normocephalic, atraumatic. Eyes: Periorbital areas with no swelling, redness, or edema. ENT: No stridor Cardiovascular: Regular rate and rhythm. No pulse deficits. Respiratory: Speaking full sentences, unlabored. No increased work of breathing, no retractions or nasal flaring. Abdomen/GI: Soft, non-tender Skin: Warm, dry, no cyanosis MS/ Extremity: Pulses equal, no cyanosis. Neuro: Awake and alert, GCS 15, oriented to person, place, time, and situation. Vital Signs: 08:59 BP 135 / 99; Pulse 92; Resp 18; Temp 98.7; Pulse Ox 100% on R/A; iw MDM: 10:50 Differential diagnosis: viral Infection, bacterial infection, URI, pneumonia Covid. rn Data reviewed: vital signs, nurses notes, lab test result(s), radiologic studies, plain films, and as a result, I will discharge patient. Counseling: I had a detailed discussion with the patient and/or guardian regarding: the historical points, exam findings, and any diagnostic results supporting the discharge/admit diagnosis, lab results, radiology results, the need for outpatient follow up, to return to the emergency department if symptoms worsen or persist or if there are any questions or concerns that arise at home. Special discussion: I discussed with the patient/guardian in detail that at this point there is no indication for admission to the hospital. It is understood, however, that if the symptoms persist or worsen the patient needs to return immediately for re-evaluation. ED course: Chest x-ray clear, Covid negative, flu negative, no oxygen requirement. Infection sounds viral. Will DC home with return precautions and given exposure to Covid positive patient recommend retesting in 48 hours.. 10:51 Patient medically screened. rn 09/26 08:53 Order name: Flu; Complete Time: 10:40 rn 09/26 08:53 Order name: XRAY Chest (1 view); Complete Time: 10:40 rn 09/26 10:48 Order name: SARS-COV-2 RT PCR; Complete Time: 10:50 EDMS Administered Medications: No medications were administered Disposition Summary: 09/26/20 10:51 Discharge Ordered Location: Home rn Problem: new rn Symptoms: have improved rn Condition: Stable rn Diagnosis - Fever, unspecified rn Followup: rn - With: Private Physician - When: As needed - Reason: Recheck today's complaints, Re-evaluation by your physician Discharge Instructions: - Discharge Summary Sheet rn - Fever, Adult rn Forms: - Medication Reconciliation Form rn - Thank You Letter rn - Antibiotic harness racing handicapper - Work release form iw - Prescription Opioid Use rn Signatures: Dispatcher [employer] Lety Alvarado RN RN iw Angelo Wisdom MD MD returned goods inspector: (The following items were deleted from the chart) 09:57 08:54 CORONAVIRUS+[id number].LAB.BRZ ordered. EDMS EDMS
[2020-09-26 11:21] VITALS: BP 135/99; TEMP 98.7; O2SAT 100
== END 2020-09-26 11:17 | disposition home or self-care (01) ==
LOC: ER 08:39
DX: R50.9 Fever, unspecified (principal); Z20.822 Contact with and (suspected) exposure to COVID-19; I10 Essential (primary) hypertension
CPT/HCPCS: 87804 ×2; 71045; 99282; U0003